=== PATIENT | female | born 1975 | race Asian ===

== ENCOUNTER 2018-11-03 09:44 | Emergency (ER) | payer OTHER ==
[~2018-11-03] VITALS: Ht 167.6 cm; Wt 118.4 kg
[2018-11-03 09:49] VITALS: BP 140/51; TEMP 99.1
[2018-11-03] MEDS ORDERED: ALBU90AE13 INH (09:53)
== END 2018-11-03 10:30 | disposition home or self-care (01) ==
LOC: ED 09:44
DX: M77.11 Lateral epicondylitis, right elbow (principal)
CPT/HCPCS: 99282

== ENCOUNTER 2019-08-31 17:50 | Emergency (ER) | payer OTHER ==
[~2019-08-31] VITALS: Ht 162.6 cm; Wt 124.7 kg
[~2019-08-31 17:50] MED LIST: ALBU90AE13 INH
[2019-08-31 20:00] VITALS: BP 129/61; TEMP 98.1
== END 2019-08-31 20:00 | disposition home or self-care (01) ==
LOC: ED 17:50
DX: S09.8XXA Other specified injuries of head, initial encounter (principal); S16.1XXA Strain of muscle, fascia and tendon at neck level, initial encounter; V54.5XXA Driver of pick-up truck or van injured in collision with heavy transport vehicle or bus in traffic accident, initial encounter; Y92.89 Other specified places as the place of occurrence of the external cause
CPT/HCPCS: 99283

== ENCOUNTER 2019-10-28 09:06 | Outpatient (CLI) | payer OTHER | END 2019-10-28 20:30 | disposition home or self-care (01) | LOC: RAD 09:06 | DX: R76.11 Nonspecific reaction to tuberculin skin test without active tuberculosis (principal) ==

== ENCOUNTER 2019-11-16 08:58 | Outpatient (CLI) | payer OTHER | END 2019-11-16 23:18 | disposition home or self-care (01) | LOC: MAMMO 08:58 | DX: Z12.31 Encounter for screening mammogram for malignant neoplasm of breast (principal) ==

== ENCOUNTER 2020-10-22 13:02 | Emergency (ER) | payer OTHER ==
[~2020-10-22] VITALS: Ht 162.6 cm; Wt 124.7 kg
[2020-10-22 13:11] VITALS: BP 141/88; TEMP 98.5
== END 2020-10-22 15:06 | disposition home or self-care (01) ==
LOC: ED 13:02
DX: B34.9 Viral infection, unspecified (principal); Z20.822 Contact with and (suspected) exposure to COVID-19
CPT/HCPCS: 87635; 99283; U0003

== ENCOUNTER 2020-11-01 11:03 | Emergency (ER) | payer OTHER ==
[~2020-11-01] VITALS: Ht 167.6 cm; Wt 124.7 kg
[2020-11-01 11:15] VITALS: BP 114/63; TEMP 98.3
== END 2020-11-01 19:00 | disposition home or self-care (01) ==
LOC: ED 11:03
DX: R10.9 Unspecified abdominal pain (principal); R30.9 Painful micturition, unspecified
CPT/HCPCS: 99281

== ENCOUNTER 2022-02-04 11:52 | Emergency (ER) | payer OTHER ==
[~2022-02-04] VITALS: Ht 167.6 cm; Wt 127.0 kg
[2022-02-04 12:03] VITALS: BP 143/53; TEMP 98.1
== END 2022-02-04 14:18 | disposition home or self-care (01) ==
LOC: ED 11:52
DX: J45.901 Unspecified asthma with (acute) exacerbation (principal); U07.1 COVID-19; F17.210 Nicotine dependence, cigarettes, uncomplicated
CPT/HCPCS: 87502; 87635; 99283; U0003

== ENCOUNTER 2022-02-11 10:46 | Emergency (ER) | payer OTHER ==
[~2022-02-11] VITALS: Ht 167.6 cm; Wt 127.0 kg
[2022-02-11 10:55] VITALS: BP 110/44; TEMP 99
[2022-02-11 12:03] LABS: PLATELET COUNT 744 K/uL (152-353)
[2022-02-11 12:17] LABS: POTASSIUM 3.5 mmol/L (3.6-5.2)
== END 2022-02-11 13:18 | disposition home or self-care (01) ==
LOC: ED 10:46
PROVIDERS: Emergency Medicine
DX: U07.1 COVID-19 (principal); J40 Bronchitis, not specified as acute or chronic; D50.8 Other iron deficiency anemias; F17.210 Nicotine dependence, cigarettes, uncomplicated
CPT/HCPCS: 80048; 85027; 87502; 87635; 99283; U0003

== ENCOUNTER 2022-06-03 14:07 | Emergency (ER) | payer OTHER ==
[~2022-06-03] VITALS: Ht 167.6 cm; Wt 124.7 kg
[2022-06-03 14:10] VITALS: BP 149/57; TEMP 97.3
== END 2022-06-03 16:55 | disposition home or self-care (01) ==
LOC: ED 14:07
DX: J45.901 Unspecified asthma with (acute) exacerbation (principal); F17.210 Nicotine dependence, cigarettes, uncomplicated
CPT/HCPCS: 94664; 96372; 99284; J2920

== ENCOUNTER 2022-09-04 08:36 | Emergency (ER) | payer OTHER ==
[~2022-09-04] VITALS: Ht 167.6 cm; Wt 124.7 kg
[2022-09-04 08:40] VITALS: TEMP 98.9
[2022-09-04 09:42] LABS: POTASSIUM 3.2 mmol/L (3.6-5.2)
[2022-09-04 09:48] LABS: PLATELET COUNT 571 K/uL (152-353)
[2022-09-04 10:25] VITALS: BP 162/65
== END 2022-09-04 10:25 | disposition home or self-care (01) ==
LOC: ED 08:36
PROVIDERS: Family Medicine
DX: J45.909 Unspecified asthma, uncomplicated (principal); R06.02 Shortness of breath; F17.210 Nicotine dependence, cigarettes, uncomplicated
CPT/HCPCS: 80048; 85027; 93005; 94664; 96372; 99283; J2930